=== PATIENT | female | born 1945 | race Caucasian/White ===

== ENCOUNTER 2018-10-01 16:41 | Emergency (ER) | payer MEDICARE ==
[~2018-10-01] VITALS: Ht 175.3 cm; Wt 79.0 kg
[~2018-10-01 16:41] MED LIST: ALPR0.25 PO; ASCO10004 PO; ASPI325T80 PO; CHOL100012 PO; CHON250C PO; ENAL2.5T32 PO; GLUC-34 PO; GLUCOSAMINE 1,1 EACH PO; HERB1CAP PO; MULT-26 PO; OMEG-26 PO; OMEP40CA6 PO; ROSU5TAB PO; UBID100C24 PO; VERA360C2 PO
--- NOTE | 2018-10-01 17:15 | NUR ---
assumed care of pt. pt sent here from for evaluation of palpitations. pt has a hx of arrythmia and HTN. pt has no c/o at this time. denies CP denies SOB denies nausea. pink warm and dry. SO at bedside
--- NOTE | 2018-10-01 17:44 | NUR ---
lab and CXR has been to bedside
[2018-10-01 17:52] LABS: BASOPHILS # (AUTO) 0.03 x10^3/uL (0-0.1); BASOPHILS % (AUTO) 0 % (0-1); EOSINOPHILS # (AUTO) 0.09 x10^3/uL (0-0.4); EOSINOPHILS % (AUTO) 2 % (1-7); LYMPHOCYTES # (AUTO) 1.47 x10^3/uL (1-3.4); LYMPHOCYTES % (AUTO) 25 % (22-44); MD NO; MEAN CORPUSCULAR HGB CONC 32.7 g/dL (32.4-35.8); MEAN CORPUSCULAR VOLUME 85.5 fL (80-100); MEAN PLATELET VOLUME 7.9 fL (7.4-10.4); MONOCYTES # (AUTO) 0.39 x10^3/uL (0.2-0.8); MONOCYTES % (AUTO) 7 % (2-9); NEUTROPHILS # (AUTO) 3.93 x10^3/uL (1.8-6.8); NEUTROPHILS % (AUTO) 67 % (42-75); PLATELET COUNT 297 x10^3/uL (130-400); RED BLOOD COUNT 4.11 x10^6/uL (3.82-5.3); RED CELL DISTRIBUTION WIDTH 14.4 % (9.6-15.2)
[2018-10-01 18:01] LABS: ALBUMIN 3.2 g/dL (3.4-5.0); ANION GAP 6 mmol/L (5-15); CHLORIDE 108 mmol/L (98-107); CREATININE 1.06 mg/dL (0.55-1.02)
[2018-10-01 18:05] LABS: TROPONIN I < 0.015 ng/mL (0.000-0.045)
[2018-10-01] MEDS ORDERED: SPIR25TA5 PO (18:15)
--- NOTE | 2018-10-01 18:29 | NUR ---
pt having A-fib/A-flutter. denies feeling palpitations. denies CP denies SOB. Dr Marshall at bedside for recheck. SO at bedside
[2018-10-01 18:40] VITALS: BP 101/65
== END 2018-10-01 18:43 | disposition home or self-care (01) ==
LOC: ED 17:08
DX: I48.92 Unspecified atrial flutter (principal); K44.9 Diaphragmatic hernia without obstruction or gangrene; I10 Essential (primary) hypertension; Z85.3 Personal history of malignant neoplasm of breast
CPT/HCPCS: 36415; 71045; 80048; 82040; 83880; 84484; 85025; 93005; 99284

== ENCOUNTER → 2018-10-12 | Outpatient (CLI) | payer MEDICARE ==
[~2018-10-12] MED LIST changes: +REGADENOSON 0.4 MG/5 ML SYRINGE ONE; +SPIR25TA5 PO
== END | disposition home or self-care (01) ==
LOC: CFH 12:25
PROVIDERS: ATTEND Internal Medicine Cardiovascular Disease
DX: I36.1 Nonrheumatic tricuspid (valve) insufficiency (principal); I10 Essential (primary) hypertension; R06.02 Shortness of breath
CPT/HCPCS: 78452; 93017; A9502; J2785

== ENCOUNTER 2018-10-20 09:58 | Day surgery (SDC) | payer MEDICARE ==
[~2018-10-20] VITALS: Ht 177.8 cm; Wt 78.2 kg
[~2018-10-20 09:58] MED LIST changes: -REGADENOSON 0.4 MG/5 ML SYRINGE ONE
[2018-10-20] MEDS ORDERED: SODIUM CHLORIDE 0.9% 1,000 ML IV SCH ×2 (10:23→10:30)
[2018-10-20 10:29] VITALS: BP 119/85
[2018-10-20] MEDS ORDERED: VERA240C4 PO (10:44)
[2018-10-20] MEDS ORDERED: ZOLP5TAB6 PO (10:47)
[2018-10-20] MEDS ORDERED: LABE100T6 PO (10:47)
[2018-10-20] MEDS ORDERED: RIVA20TA PO (10:48)
[2018-10-20] MEDS ORDERED: VITAMIN B3 PO (10:52)
[2018-10-20 11:00] LABS: BASOPHILS # (AUTO) 0.03 x10^3/uL (0-0.1); BASOPHILS % (AUTO) 1 % (0-1); EOSINOPHILS # (AUTO) 0.07 x10^3/uL (0-0.4); EOSINOPHILS % (AUTO) 1 % (1-7); LYMPHOCYTES # (AUTO) 1.48 x10^3/uL (1-3.4); LYMPHOCYTES % (AUTO) 26 % (22-44); MD NO; MEAN CORPUSCULAR HEMOGLOBIN 27.8 pg (27.0-34.8); MEAN CORPUSCULAR HGB CONC 33.3 g/dL (32.4-35.8); MEAN CORPUSCULAR VOLUME 83.4 fL (80-100); MONOCYTES # (AUTO) 0.47 x10^3/uL (0.2-0.8); MONOCYTES % (AUTO) 8 % (2-9); NEUTROPHILS # (AUTO) 3.64 x10^3/uL (1.8-6.8); NEUTROPHILS % (AUTO) 64 % (42-75); PLATELET COUNT 306 x10^3/uL (130-400); RED BLOOD COUNT 4.47 x10^6/uL (3.82-5.3); RED CELL DISTRIBUTION WIDTH 14.7 % (9.6-15.2)
[2018-10-20 11:05] LABS: ANION GAP 7 mmol/L (5-15); CALCIUM 8.6 mg/dL (8.5-10.1); CHLORIDE 110 mmol/L (98-107); CREATININE 0.71 mg/dL (0.55-1.02)
[2018-10-20] MEDS ORDERED: PROPOFOL 10 MG/ML, 20ML ONE (12:05)
[2018-10-20] MEDS ORDERED: LIDOCAINE 1%, 20ML ONE (12:38)
[2018-10-20] MEDS ORDERED: MIDAZOLAM 1 MG/ML, 5ML ONE (12:38)
[2018-10-20] MEDS ORDERED: ISOPROTERENOL 0.2MG/ML, 5ML ONE (12:38)
[2018-10-20] MEDS ORDERED: FENTANYL PF 100 MCG/2ML ONE (12:38)
[2018-10-20] MEDS ORDERED: ACETAMINOPHEN 325 MG TABLET PO PRN (16:30)
[2018-10-20] MEDS ORDERED: LABETALOL 100 MG TABLET PO SCH (21:00)
[2018-10-20] MEDS ORDERED: ZOLPIDEM 5MG TABLET PO SCH (21:00)
[2018-10-20] MEDS ORDERED: RIVAROXABAN 20 MG TABLET PO SCH (21:00)
[2018-10-20] MEDS ORDERED: ENALAPRIL 10 MG TABLET PO SCH (21:00)
[2018-10-21] MEDS ORDERED: CHOLECALCIFEROL 1,000 UNIT TABLET PO SCH (09:00)
[2018-10-21] MEDS ORDERED: ASCORBIC ACID 500 MG TABLET PO SCH (09:00)
[2018-10-21] MEDS ORDERED: CHONDRO SU A PO SCH (09:00)
[2018-10-21] MEDS ORDERED: TEMPLATE NON-FORMULARY MED. (Ubidecarenone (Coq-10) 300 MG) PO SCH (09:00)
[2018-10-21] MEDS ORDERED: SPIRONOLACTONE 25 MG TABLET PO SCH (09:00)
[2018-10-21] MEDS ORDERED: MULTIVITAMIN 1 TABLET PO SCH (09:00)
[2018-10-21] MEDS ORDERED: VITAMIN B3 PO SCH (09:00)
[2018-10-21] MEDS ORDERED: GLUCOSAMINE PO SCH (09:00)
[2018-10-21] MEDS ORDERED: OMEGA-3/FISH OIL CAPSULE PO SCH (09:00)
[2018-10-21] MEDS ORDERED: VERAPAMIL ER 240MG TABLET.ER PO SCH (09:00)
== END 2018-10-20 20:18 | disposition home or self-care (01) ==
LOC: CACL 09:58 → 5SO 16:25 → CACL 20:18
PROVIDERS: ATTEND Internal Medicine Cardiovascular Disease
DX: I48.92 Unspecified atrial flutter (principal); I10 Essential (primary) hypertension; E11.9 Type 2 diabetes mellitus without complications; E78.2 Mixed hyperlipidemia; Z79.82 Long term (current) use of aspirin; Z87.891 Personal history of nicotine dependence; Z79.84 Long term (current) use of oral hypoglycemic drugs
CPT/HCPCS: 36415; 71046; 80048; 85025; 93312; 93321; 93325; 93613; 93621; 93653; 99156; 99157; C1730; C1731; C1732; C1766; C1769; C1894; J2250; J2704; J3010; J3490; G0378

== ENCOUNTER 2019-12-28 13:06 | Emergency (ER) | payer MEDICARE ==
[~2019-12-28] VITALS: Ht 175.3 cm; Wt 76.8 kg
[~2019-12-28 13:06] MED LIST changes: +LABE100T6 PO; +OMEP40CA42 PO; -OMEP40CA6 PO; +RIVA20TA PO; +VERA240C4 PO; +VITAMIN B3 PO; +ZOLP5TAB6 PO
--- NOTE | 2019-12-28 13:22 | NUR ---
provider at bedside.
--- NOTE | 2019-12-28 13:22 | NUR ---
pt in hospital gown. In with C/O of "going down hill", lack of energy and shortness of breath since [place] and inability to have stress test completed
[2019-12-28] MEDS ORDERED: ASPIRIN 81 MG TABLET CHEW ONE (13:42)
[2019-12-28] MEDS ORDERED: SODIUM CHLORIDE FLUSH 10ML SYR IVF ONE (14:00)
[2019-12-28] MEDS ORDERED: ASPIRIN 81 MG TABLET CHEW PO ONE (14:00)
[2019-12-28 14:02] LABS: ALANINE AMINOTRANSFERASE 29 U/L (12-78); ALBUMIN 3.7 g/dL (3.4-5.0); ANION GAP 8 mmol/L (5-15); CHLORIDE 108 mmol/L (98-107); CREATININE 0.69 mg/dL (0.55-1.02)
[2019-12-28 14:06] LABS: ALKALINE PHOSPHATASE 71 U/L (45-117); BILIRUBIN,TOTAL 0.5 mg/dL (0.2-1.0); T4 (THYROXINE) 7.5 mcg/dL (4.8-13.9); TOTAL PROTEIN 7.2 g/dL (6.4-8.2); TROPONIN I < 0.015 ng/mL (0.000-0.045)
[2019-12-28 14:10] LABS: ANISOCYTOSIS 2+; BASOPHILS # (AUTO) 0.02 x10^3/uL (0-0.1); BASOPHILS % (AUTO) 0 % (0-1); EOSINOPHILS # (AUTO) 0.05 x10^3/uL (0-0.4); EOSINOPHILS % (AUTO) 1 % (1-7); LYMPHOCYTES # (AUTO) 1.35 x10^3/uL (1-3.4); LYMPHOCYTES % (AUTO) 25 % (22-44); MD MORPH REVIEW ONLY; MEAN CORPUSCULAR HEMOGLOBIN 18.9 pg (27.0-34.8); MEAN CORPUSCULAR HGB CONC 30.3 g/dL (32.4-35.8); MEAN CORPUSCULAR VOLUME 62.4 fL (80-100); MEAN PLATELET VOLUME 7.6 fL (7.4-10.4); MICROCYTOSIS 2+; MONOCYTES # (AUTO) 0.52 x10^3/uL (0.2-0.8); MONOCYTES % (AUTO) 10 % (2-9); NEUTROPHILS # (AUTO) 3.42 x10^3/uL (1.8-6.8); NEUTROPHILS % (AUTO) 64 % (42-75); PLATELET COUNT 348 x10^3/uL (130-400); RED CELL DISTRIBUTION WIDTH 17.8 % (9.6-15.2)
[2019-12-28 14:11] LABS: HYPOCHROMIA 2+
[2019-12-28 14:12] LABS: <PLATELET ESTIMATE> ADEQUATE; OVALOCYTES 1+; POLYCHROMASIA 1+
[2019-12-28 14:13] LABS: LARGE PLATELETS 1+
[2019-12-28] MEDS ORDERED: HYDR-3343 PO (15:06)
[2019-12-28] MEDS ORDERED: BUDE10.2 INH (15:06)
[2019-12-28] MEDS ORDERED: MONT10TA11 PO (15:06)
--- NOTE | 2019-12-28 15:07 | NUR ---
Completed pts home medication rec. pt denies any needs at this time.
[2019-12-28 16:04] VITALS: BP 137/77
--- NOTE | 2019-12-28 16:04 | NUR ---
blood transfusion started. at bedside. pt verbalizes understanding of possible signs of reaction.
[2019-12-28 16:19] VITALS: BP 137/77
[2019-12-28 16:34] VITALS: BP 147/82
[2019-12-28 16:58] VITALS: BP 148/90
[2019-12-28 17:35] VITALS: BP 143/85
[2019-12-28 18:12] VITALS: BP 155/87
--- NOTE | 2019-12-28 18:20 | NUR ---
Patient/Caregiver given discharge instructions and they have confirmed that they understand the instructions. Patient ambulatory with steady gait. pt left ED in no distress.
== END 2019-12-28 18:21 | disposition home or self-care (01) ==
LOC: ED 14:39
DX: D64.9 Anemia, unspecified (principal); R06.00 Dyspnea, unspecified; R07.89 Other chest pain; R06.02 Shortness of breath; I10 Essential (primary) hypertension
CPT/HCPCS: 36415; 36430; 71045; 80053; 83735; 83880; 84436; 84443; 84484; 85025; 86850; 86900; 86923; 93005; 99285; P9016

== ENCOUNTER → 2020-01-08 | Outpatient (CLI) | payer MEDICARE ==
[~2020-01-08] MED LIST changes: +BUDE10.2 INH; +HYDR-3343 PO; +MONT10TA11 PO
== END | disposition home or self-care (01) ==
LOC: CFH 08:25
PROVIDERS: ATTEND Internal Medicine Cardiovascular Disease
DX: I48.92 Unspecified atrial flutter (principal); R06.02 Shortness of breath
CPT/HCPCS: 78452; 93017; A9502

== ENCOUNTER 2021-03-26 12:17 | Outpatient (CLI) | payer MEDICARE ==
[~2021-03-26 12:17] MED LIST changes: +ASCO100018 PO; -ASCO10004 PO; -MONT10TA11 PO; +MONT10TA17 PO; -OMEP40CA42 PO; +OMEP40CA8 PO; +REGADENOSON 0.4 MG/5 ML SYRINGE ONE
[2021-03-27] MEDS ORDERED: REGADENOSON 0.4 MG/5 ML SYRINGE ONE (07:38)
== END 2021-03-26 23:59 | disposition home or self-care (01) ==
LOC: CFH 12:17
PROVIDERS: ATTEND Internal Medicine Cardiovascular Disease
DX: Z01.810 Encounter for preprocedural cardiovascular examination (principal)
CPT/HCPCS: 78452; 93017; A9502; J2785